=== PATIENT | female | born 1955 | race Caucasian/White ===

== ENCOUNTER 2017-05-03 04:15 | Emergency (ER) | payer OTHER ==
[2017-05-03] MEDS ORDERED: LORazepam 2 MG/ML INJ IVP ONE (04:41)
--- NOTE | 2017-05-03 04:41 | EDPHY ---
H & P Stated Complaint: Chest pain, esophageal spasms Source: Patient Exam Limitations: No limitations - Personal History Current Tetanus Diphtheria and Acellular Pertussis (TDAP): Yes Tetanus Vaccine Date: 2011 - Medical/Surgical History Hx Asthma: No Hx Chronic Respiratory Disease: No Hx Diabetes: No Hx Cardiac Disease: No Hx Renal Disease: No Hx Cirrhosis: No Hx Alcoholism: No Hx HIV/AIDS: No Hx Splenectomy or Spleen Trauma: No Other PMH: Esophegeal spasms, GERD, thyroid nodule, bipolar - Family History Significant Family History: No pertinent family hx - Social History Smoking Status: Never smoked Alcohol Use: Sober Drug Use: None Time Seen by Provider: 05/03/17 04:31 HPI/ROS: CHIEF COMPLAINT: Esophageal spasm HISTORY OF PRESENT ILLNESS: Patient is a 61-year-old female with a history of epilepsy, bipolar, esophageal spasm stricture and esophageal spasm. She states that it around 3:00 a.m. She woke up with severe epigastric chest pain that is reminiscent of her esophageal spasm but much worse. She was concerned that maybe it was her heart. She tried taking peppermint which usually helps but did not. She denies shortness of breath or diaphoresis. No nausea vomiting. No lightheadedness. She denies any history of cardiac or pulmonary disease. No palpitations or lightheadedness REVIEW OF SYSTEMS: Constitutional: denies: chills, fever, recent illness, recent injury EENTM: denies: blurred vision, double vision, nose congestion Respiratory: denies: cough, shortness of breath Cardiac: See HPI Gastrointestinal/Abdominal: denies: abdominal pain, diarrhea, nausea, vomiting, blood streaked stools Genitourinary: denies: dysuria, frequency, hematuria, pain Musculoskeletal: denies: joint pain, muscle pain Skin: denies: lesions, rash, jaundice, bruising Neurological: denies: headache, numbness, paresthesia, tingling, dizziness, weakness Hematologic/Lymphatic: denies: blood clots, easy bleeding, easy bruising Immunologic/allergic: denies: HIV/AIDS, transplant EXAM: GENERAL: Well-appearing, well-nourished and in no acute distress. HEAD: Atraumatic, normocephalic. EYES: Pupils equal round and reactive to light, extraocular movements intact, sclera anicteric, conjunctiva are normal. ENT: TMs normal, nares patent, oropharynx clear without exudates. Moist mucous membranes. NECK: Normal range of motion, supple without lymphadenopathy or JVD. LUNGS: Breath sounds clear to auscultation bilaterally and equal. No wheezes rales or rhonchi. HEART: Regular rate and rhythm without murmurs, rubs or gallops. ABDOMEN: Soft, nontender, normoactive bowel sounds. No guarding, no rebound. No masses appreciated. BACK: No CVA tenderness, no spinal tenderness, step-offs or deformities EXTREMITIES: Normal range of motion, no pitting or edema. No clubbing or cyanosis. NEUROLOGICAL: Cranial nerves II through XII grossly intact. Normal speech, normal gait. 5/5 strength, normal movement in all extremities, normal sensation PSYCH: Normal mood, normal affect. SKIN: Warm, dry, normal turgor, no visible rashes or lesions. (Sylvain Washburn) Constitutional: Initial Vital Signs Temperature (C) 36.3 C 05/03/17 04:17 Heart Rate 67 05/03/17 04:17 Respiratory Rate 18 05/03/17 04:17 Blood Pressure 157/91 H 05/03/17 04:17 O2 Sat (%) 97 05/03/17 04:17 O2 Delivery Mode Room Air Allergies/Adverse Reactions: sertraline HCl [From Zoloft] Allergy (Severe, Verified 05/03/17 04:17) codeine [Codeine] Allergy (Verified 05/03/17 04:17) Home Medications: Medication Instructions Recorded Acetamn/Diphenhydramine 500/25 1 each PO HS PRN 10/21/12 [Tylenol PM (RX)] Estradiol [ESTRADIOL] 0.75 mg PO HS 10/21/12 Nitroglycerin [Nitrostat 0.4 mg 0.4 mg SL DAILY PRN 10/21/12 (RX)] Pharmacist Completed 10/21/12 10/21/12 lamoTRIgine [LamICTAL 100 MG (RX)] 150 mg PO HS 10/21/12 Lidocaine 2% Viscous 5 ml PO Q6 PRN #100 ml 05/03/17 Medical Decision Making - Diagnostics Imaging: I viewed and interpreted images myself (No acute disease) - Diagnostics EKG Interpretation: An EKG obtained and was read and documented in trace view. Please see trace view for full reading and report. Sinus rhythm, no acute ischemic changes, first-degree AV block (Sylvain Washburn) ED Course/Re-evaluation: 7:00 a.m.-I assumed care of this patient at shift change to check the 2nd troponin. If the 2nd troponin is normal, the plan is to discharge the patient home. I reviewed the EKG, which reveals first-degree AV block, without evidence of ischemia or dysrhythmia. Chest x-ray and laboratory studies are unremarkable. 8:30 a.m.-repeat troponin is negative. Results discussed with the patient, as well as clinical history. She has a long history of similar symptoms, though this episode was among the most severe she has had. She is currently taking Prilosec and has multiple food restrictions to prevent the esophageal spasm. She is currently being seen by a rope walker at [facility] [place]. I feel that she is safe and stable for discharge home. Abdomen is soft and nontender on discharge. (Cyndi Eagle) 5:30 a.m. The patient is currently asymptomatic. She is feeling much better. We discussed the lab work imaging and EKG which are all reassuring thus far. I recommended repeat troponin. The patient agrees. 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 She declines admission. If her 2nd troponin is negative expect she can be discharged safely to follow up with her doctor. We discussed this and she states that she can arrange an outpatient stress test. Care transferred to Dr. Cyndi Eagle at shift change. (Sylvain Washburn) Differential Diagnosis: Partial list of the Differential diagnosis considered include but were not limited to; esophageal spasm, GERD, acute coronary disease and although unlikely based on the history and physical exam, I also considered PE, pneumonia , dissection, pneumothorax. (Sylvain Washburn) - Data Points Laboratory Results: Laboratory Results 05/03/17 04:20 05/03/17 04:20 Medications Given: Discontinued Medications Al Hydroxide/Mg Hydroxide (Maalox Susp) 30 ml PO ONCE ONE Stop: 05/03/17 08:04 Last Admin: 05/03/17 08:20 Dose: 30 ml Hyoscyamine Sulfate (Levsin, Hyomax-Sl) 0.25 mg PO ONCE ONE Stop: 05/03/17 08:04 Last Admin: 05/03/17 08:19 Dose: 0.25 mg Ketorolac Tromethamine (Toradol) 15 mg IVP EDNOW ONE Stop: 05/03/17 04:43 Last Admin: 05/03/17 04:55 Dose: 15 mg Lidocaine (Lidocaine 2% Viscous) 15 ml PO ONCE ONE Stop: 05/03/17 08:04 Last Admin: 05/03/17 08:20 Dose: 15 ml Lorazepam (Ativan Injection) 0.5 mg IVP EDNOW ONE Stop: 05/03/17 04:42 Last Admin: 05/03/17 04:54 Dose: 0.5 mg Nitroglycerin (Nitrostat) 0.4 mg SL Q5M PRN PRN Reason: Chest Pain Last Admin: 05/03/17 05:09 Dose: 0.4 mg Departure - Departure Disposition: Home, Routine, Self-Care Clinical Impression: Esophageal spasm Chest pain Qualifiers: Chest pain type: unspecified Qualified Code(s): R07.9 - Chest pain, unspecified Condition: Fair Instructions: Chest Pain (ED) Additional Instructions: Follow-up with your rope walker at [facility] [place]. Referrals: Chema Parmar MD [Medical Doctor] - As per Instructions (Call to make an appointment.) Prescriptions: Lidocaine 2% Viscous 5 ml PO Q6 PRN #100 ml PRN Reason: Esophageal spasm
[2017-05-03] MEDS ORDERED: KETOROLAC 30 MG/1 ML SDV IVP ONE (04:42)
[2017-05-03 04:47] LABS: PLATELET COUNT 252 10^3/uL (150-400)
--- NOTE | 2017-05-03 04:53 | CPEKG ---
Heart Rate: 63 RR Interval: 952 P-R Interval: 228 QRSD Interval: 88 QT Interval: 428 QTC Interval: 439 P [place]: 38 QRS [place]: 49 T Wave [place]: 24 EKG Severity - ABNORMAL ECG - EKG Impression: SINUS RHYTHM EKG Impression: FIRST DEGREE AV BLOCK Electronically Signed By: Sylvain Washburn 03-May-2017 04:54:54
[2017-05-03 04:57] LABS: PROTIME(PATIENT) 13.4 SEC (12.0-15.0)
[2017-05-03] MEDS: NITROGLYCERIN 0.4 MG BTL SL PRN ×3 (04:59→05:09)
[2017-05-03 06:33] VITALS: O2SAT 95
[2017-05-03 07:11] VITALS: RESP 12
[2017-05-03] MEDS ORDERED: HYOSCYAMINE SULFATE 0.125 MG TAB PO ONE (08:03)
[2017-05-03] MEDS ORDERED: LIDOCAINE 2% VISCOUS 15 ML UDCUP PO ONE (08:03)
[2017-05-03] MEDS ORDERED: MAG HYDROX/AL HYDROX/SIMETH 30 ML UDCUP PO ONE (08:03)
--- NOTE | 2017-05-03 08:05 | CPEKG ---
Heart Rate: 55 RR Interval: 1091 P-R Interval: 228 QRSD Interval: 84 QT Interval: 444 QTC Interval: 425 P [place]: 31 QRS [place]: 34 T Wave [place]: 20 EKG Severity - ABNORMAL ECG - EKG Impression: SINUS RHYTHM EKG Impression: FIRST DEGREE AV BLOCK Electronically Signed By: Cyndi Eagle 03-May-2017 15:00:09
[2017-05-03 08:46] VITALS: BP 118/74; PULSE 56; TEMP 97.7
== END 2017-05-03 08:45 | disposition home or self-care (01) ==
DX: K22.4 Dyskinesia of esophagus (principal); R07.9 Chest pain, unspecified
CPT/HCPCS: 96374; J1885; J2060